=== PATIENT | female | born 1980 | race African-American/Black ===

== ENCOUNTER 2016-09-20 11:57 | Emergency (ER) | payer SELFPAY ==
[~2016-09-20] VITALS: Ht 165.1 cm; Wt 82.0 kg
[~2016-09-20 11:57] MED LIST: Ibuprofen PO; OMEP20CA10 PO; SIMV10TA2 PO
[2016-09-20] MEDS ORDERED: SODIUM CHLORIDE 0.9% 1,000 ML IV ONE (13:18)
[2016-09-20] MEDS ORDERED: MORPHINE SULFATE 4 MG/ML CPJ (NOT FOR IM USE) IV STA (13:18)
[2016-09-20] MEDS ORDERED: KETOROLAC 30MG/ML VIAL IV STA (13:18)
[2016-09-20] MEDS ORDERED: ONDANSETRON HCL 4MG/2ML VIAL IV STA (13:18)
[2016-09-20] MEDS ORDERED: ACETAMINOPHEN 650MG/20.3ML UDC PO ONE (14:15)
[2016-09-20 14:30] LABS: CHLORIDE 106 mEq/L (98-107); INDEX HEMOLYSI 1 (1-3); INDEX ICTERIC 1 (1-4); INDEX LIPEMIC 1 (1-3); PROTHROMBIN TIME 10.8 sec
[2016-09-20 14:32] LABS: HCG SCREEN POSITIVE
[2016-09-20 14:33] LABS: BASOPHILS % 0.5 % (0.0-2.0); EOSINOPHILS % 0.1 % (0.0-5.0); HEMATOCRIT. 39.8 % (36.0-48.0); HEMOGLOBIN. 13.1 g/dL (12.0-16.0); LYMPHOCYTES % 19.7 % (20.0-50.0); MEAN CORPUSCULAR HEMOGLOBIN 30.9 pg (28.0-32.0); MEAN CORPUSCULAR HGB CONC 33.1 g/dL (31.0-37.0); MEAN CORPUSCULAR VOLUME 93.4 fL (81.0-99.0); MEAN PLATELET VOLUME 8.4 fl (7.4-10.4); MONOCYTES % 7.6 % (2.0-8.0); NEUTROPHILS % 72.1 % (40.0-76.0); PLATELET 238 x1000/uL (130-400); RED BLOOD CELL COUNT 4.26 mill/uL (4.2-5.4); RED CELL DISTRIBUTION WIDTH 13.1 % (11.6-14.6)
[2016-09-20 14:40] LABS: ALANINE AMINOTRANSFERASE 12 IU/L (13-61); ALBUMIN 3.7 g/dL (3.4-5.0); ANION GAP 13; CARBON DIOXIDE 24 mEq/L (21-32); LIPASE 89 IU/L (73-393); UREA NITROGEN BLOOD 7 mg/dL (7-21); eGFR > 60 mL/min (>60)
[2016-09-20 18:00] VITALS: BP 120/88
== END 2016-09-20 18:25 | disposition home or self-care (01) ==
LOC: ER 13:28
DX: O26.891 Other specified pregnancy related conditions, first trimester (principal); O99.331 Smoking (tobacco) complicating pregnancy, first trimester; F17.200 Nicotine dependence, unspecified, uncomplicated; R10.30 Lower abdominal pain, unspecified; Z87.442 Personal history of urinary calculi; Z79.899 Other long term (current) drug therapy
CPT/HCPCS: 36415; 76801; 76817; 80053; 83690; 84702; 84703; 85025; 85610; 96361; 96374; 99285; J2270; J2405; J7030; J1885